=== PATIENT | male | born 1965 | race Caucasian/White ===

== ENCOUNTER → 2021-08-02 | Day surgery (SDC) | payer MEDICARE ==
[~2021-08-02] VITALS: Ht 175.3 cm; Wt 68.0 kg
[~2021-08-02] MED LIST: ADVOCATE SYRIN1 EAC1 XX; AMARYL2 MG PO; ANORO ELLIPTA1 EACH INH; ASPIRIN CHEWABL81 MG PO; BRILINTA90 MG PO; CYMBALTA 30MG C30 MG PO; CYMBALTA20 MG PO; HABITROL14 MG TD; HABITROL7 MG TD; HUMULIN R100 UNIT/2 SC; JANUMET XR 50-1 EACH PO; LANTUS **100 UNITS/ SC; LASIX80 MG PO; LEVEMIR VI100 UNITS/ SC; LIPITOR40 MG PO; MELATONIN5 M2 PO; METOPROLOL SUC100 MG PO; NEURONTIN300 MG PO; NORCO 5-325 TA1 EAC1 PO; NORCO 5-325 TA1 EACH PO; NORCO 5/3251 EACH PO; OMEPRAZOLE40 MG PO; PRILOSEC20 MG PO; PRINIVIL20 MG PO; REVATIO 20MG TA20 MG PO; SENOKOT-S TABL1 EACH PO; SPIRIVA 185 PUFFS/IN INH; SYMBICORT 80-10.2 GM INH; TOPROL XL 50 MG50 MG PO; VENTOLIN HFA IN18 GM INH; WELLBUTRIN XL150 MG PO
[2021-08-02 09:07] LABS: ALBUMIN 4.5 g/dL (3.4-5.0); BILIRUBIN - TOTAL 1.5 mg/dL (0.2-1.0); BUN/CREAT RATIO (CALC) 13.6 RATIO; CREATININE 0.81 mg/dL (0.67-1.17); GLOBULIN (CALCULATION) 3.3 g/dL; POTASSIUM 4.6 mmol/L (3.5-5.1); TOTAL PROTEIN 7.8 g/dL (6.4-8.2)
== END | disposition home or self-care (01) ==
LOC: FAS 08:20
PROVIDERS: Surgery
DX: D12.2 Benign neoplasm of ascending colon (principal); D12.8 Benign neoplasm of rectum; K52.9 Noninfective gastroenteritis and colitis, unspecified; I25.10 Atherosclerotic heart disease of native coronary artery without angina pectoris; J44.9 Chronic obstructive pulmonary disease, unspecified; E11.9 Type 2 diabetes mellitus without complications; I25.2 Old myocardial infarction; I10 Essential (primary) hypertension; E78.5 Hyperlipidemia, unspecified; F17.210 Nicotine dependence, cigarettes, uncomplicated; Z86.010 Personal history of colon polyps; Z86.73 Personal history of transient ischemic attack (TIA), and cerebral infarction without residual deficits; Z80.0 Family history of malignant neoplasm of digestive organs; Z88.5 Allergy status to narcotic agent; Z79.82 Long term (current) use of aspirin
CPT/HCPCS: 36415; 80053; 82150; 83690; J1610; J2250; J2704; J7120